=== PATIENT | female | born 1995 | race Caucasian/White ===

== ENCOUNTER 2022-02-21 01:30 | Observation (INO) ==
--- NOTE | 2022-02-21 02:27 | History & Physical Report ---
Date of Service February 21, 2022 Assessment & Plan (1) Vaginal bleeding during , antepartum: Plan: no obvious source of the bleeding but I suspect this may be a placental abruption will monitor for now and discuss case with [facility]. for recommendations . currently no further active bleeding noted. History of Present Illness Chief Complaint: heavy vaginal bleeding Primary Care Provider: NO PCP Patient is a 26 yo white female [facility] [birth year] who presents at 30 2/7 weeks with sudden onset of painless heavy vaginal bleeding. She ad been sleeping at the time and awoke to feeling something leaking and noted a large amount of blood in toilet. she put on a pad and soaked through this as well. she denies any cramping or abdominal pain prior to the bleeding episode. she denies any recent intercourse or increased activity. preganncy had been complicated by a large QUANG that has been followed by ultrasound. She did have a consult with [facility] concerning management of the QUANG. She has not had any bleeding since 20 week ultrasound. She did have a hematoma in area of IOS . placenta is fundal with no vasa previa. she has been having growth scans monthly because of the large QUANG which has now appeared to be resolved. most recent growth scan was at 28 weeks with possible velamentous cord insertion noted. EFW was 53 %tile. she has had good movement. blood type- O positive. Allergies Allergy/AdvReac Type Severity Reaction Status Date / Time No Known Allergies Allergy Verified 02/19/22 10:43 Home Medications Medication Instructions Recorded Confirmed Type prenat.vits,blade,ehp-ziqp-blvyd 1 tab PO QAM 05/26/21 02/21/22 History Patient History Medical History Missed Varicella vaccination Surgical History History of colonoscopy History of toe surgery ingrown toenail S/P wisdom tooth extraction Family History Grandfather (Paternal) Skin cancer Grandfather (Maternal) Lung cancer Mother Hypertension Father Myocardial infarction Grandmother (Paternal) Heart disease Other No family history of adverse response to anesthesia Denies family history of Ovarian cancer Breast cancer Colorectal cancer Social History Smoking Status: Never smoker Second Hand Exposure: No; Hx Alcohol Use: Yes ((none during )) Alcohol type: beer Hx Substance Use: No Preferred Language: Persian Communication Ability: Effective Civil Defense Director Required: No Beliefs That Will Affect Care: None marital status: marital status details: José Rueda (29) [phone] Current Living Situation: Spouse Current Living Situation Comment: lives with spouse, dog current occupational status: employed and student current occupation: PhD student [employer] Other Information That Helps Us Care for You: No Feels Safe at Home: Yes Assistive Devices: None Review of Systems All systems reviewed & are unremarkable except as noted in HPI & below Physical Exam Constitutional: WD/WN, vitals as above Psychiatric: A+Ox3, euthymic affect Genitourinary: OB Exam Abdomen: + vertex and + irregular contractions OB Exam Monitor Tracing: + external FHT monitor used, + external uterine monitor used, + category I and + normal FHT variability speculum exam - moderate amount of blood vaginally , cervix is visibly closed and long. ultrasound shows vertex presentation with large pockets of amniotic fluid noted. ferning is negative. Results & Data ([facility]) Vital Signs (Past 12 Hours) Vital Signs Pulse BP 02/21/22 01:53 75 123/76 02/21/22 01:40 90 140/91 Coding Level of Care Code 22552 Office/Outpt Visit, Est Diagnoses Vaginal bleeding during , antepartum O46.90
--- NOTE | 2022-02-21 03:02 | Communication Note ---
Date of Service: February 21, 2022 Discussed case with [facility] inspection clerk [facility]. will observe for now in L&D for any further substantial bleeding. will get formal ultrasound to assess for abruption will hold on Betamethasone for now per [facility] recs- if she has a second significant bleed would give it then patient aware of these recs and all questions answered as best that I can at this time
--- NOTE | 2022-02-21 09:02 | Obstetrical Progress Note ---
Date of Service February 21, 2022 Patient had a significant bleed last night was assessed by my partner Dr. Green her bleeding is slightly decreased however she still is having some active bleeding the heart rate is category 1 she has no pain at this time the cervix was viewed and was closed I reviewed with the patient and with Dr. Green about the possibility of transfer to [facility] we all agree has is that the patient has worsening bleeding we do not have a intensive care discussed with the patient she agrees we will make arrangements for this I did discuss with [facility] inquired about steroids they would prefer to wait until assessment at [facility] we will try to transfer by ambulance Assessment & Plan Admission and Anticipated Discharge Date Admission Date: February 21, 2022 Results & Data ([facility]) Vital Signs (Past 12 Hours) Vital Signs Temp Pulse Resp BP 02/21/22 07:11 98.4 F 83 20 108/58 L 02/21/22 01:53 75 123/76 02/21/22 01:49 98.6 F 18 02/21/22 01:40 90 140/91 PG Care Time/CCT Total # of Minutes Spent Total Time Spent with Patient: Total time spent is greater than 50% in coordination of care (as documented) at patient's floor/unit and/or counseling patient: Coding Level of Care Code None
--- NOTE | 2022-02-21 10:18 | History & Physical Report ---
Date of Service February 21, 2022 Assessment & Plan (1) Vaginal bleeding during , antepartum: Plan: After speaking with [place] and the patient we have agreed to transfer by ambulance. Again we will hold on betamethasone as per [facility] recommendations at this time my concern is that if she has another bleed that she would need access to potentially an intensive care unit we do not have this here at this stage she is stable her fetus is category 1 and reactive her bleeding is somewhat reduced and stable however it is not stopped and I think considering her earlier bleeding in this is the prudent thing to do. I reviewed this carefully with the patient including the risks of transfer I also discussed the benefits including access to a NICU Admission and Anticipated Discharge Date Admission Date: February 21, 2022 History of Present Illness Primary Care Provider: NO PCP Patient with a history of ongoing vaginal bleeding in her this stopped around 24 weeks she had a large subchorionic hemorrhage subsequently she had several weeks from 24 weeks to 30 weeks without any bleeding this early this morning she started having heavy bleeding so saturating through pads she was assessed by Dr. Green and found not to be ruptured membranes the cervix appeare d closed at that time. Ultrasound the time also revealed amniotic fluid was adequate per Dr. Green. Allergies Allergy/AdvReac Type Severity Reaction Status Date / Time No Known Allergies Allergy Verified 02/19/22 10:43 Home Medications Medication Instructions Recorded Confirmed Type prenat.vits,blade,vtw-boun-hiufc 1 tab PO QAM 05/26/21 02/21/22 History Patient History Medical History Missed Varicella vaccination Surgical History History of colonoscopy History of toe surgery ingrown toenail S/P wisdom tooth extraction Family History Grandfather (Paternal) Skin cancer Grandfather (Maternal) Lung cancer Mother Hypertension Father Myocardial infarction Grandmother (Paternal) Heart disease Other No family history of adverse response to anesthesia Denies family history of Ovarian cancer Breast cancer Colorectal cancer Social History Smoking Status: Never smoker Second Hand Exposure: No; Hx Alcohol Use: Yes ((none during )) Alcohol type: beer Hx Substance Use: No Preferred Language: Belizean Communication Ability: Effective Airplane Flight Attendant Supervisor Required: No Beliefs That Will Affect Care: None marital status: marital status details: José Rueda (29) [phone] Current Living Situation: Spouse Current Living Situation Comment: lives with spouse, dog current occupational status: employed and student current occupation: PhD student [employer] Other Information That Helps Us Care for You: No Feels Safe at Home: Yes Assistive Devices: None Review of Systems as per Subjective / HPI Physical Exam Constitutional: WD/WN, vitals as above well developed and well nourished Respiratory: normal respiratory effort, lungs clear to auscultation normal respiratory effort Cardiovascular: RRR, no murmur, no edema Gastrointestinal (Abdomen): normal bowel sounds, soft, nontender, no hepatosplenomegaly Results & Data ([facility]) Vital Signs (Past 12 Hours) Vital Signs Temp Pulse Resp BP 02/21/22 07:11 98.4 F 83 20 108/58 L 02/21/22 01:53 75 123/76 02/21/22 01:49 98.6 F 18 02/21/22 01:40 90 140/91 Coding Level of Care Code OBSERV/HOSP SAME DATE LVL 3 Diagnoses Vaginal bleeding during , antepartum O46.90
--- NOTE | 2022-02-26 07:13 | Discharge Summary ---
Date of Service February 26, 2022 Admission HPI Per Admitting Provider Patient with a history of ongoing vaginal bleeding in her this stopped around 24 weeks she had a large subchorionic hemorrhage subsequently she had several weeks from 24 weeks to 30 weeks without any bleeding this early this morning she started having heavy bleeding so saturating through pads she was assessed by Dr. Green and found not to be ruptured membranes the cervix appeared closed at that time. Ultrasound the time also revealed amniotic fluid was adequate per Dr. Green. Admission Exam (Per Admitting) Constitutional WD/WN, vitals as above well developed and well nourished Respiratory normal respiratory effort, lungs clear to auscultation normal respiratory effort Cardiovascular RRR, no murmur, no edema Gastrointestinal (Abdomen) normal bowel sounds, soft, nontender, no hepatosplenomegaly Hospital Course (1) Vaginal bleeding during , antepartum: After speaking with [place] and the patient we have agreed to transfer by ambulance. Again we will hold on betamethasone as per [facility] recommendations at this time my concern is that if she has another bleed that she would need access to potentially an intensive care unit we do not have this here at this stage she is stable her fetus is category 1 and reactive her bleeding is somewhat reduced and stable however it is not stopped and I think considering her earlier bleeding in this is the prudent thing to do. I reviewed this carefully with the patient including the risks of transfer I also discussed the benefits including access to a NICU Coding Level of Care Code None Diagnoses Vaginal bleeding during , antepartum O46.90
== END 2022-02-21 10:32 | disposition home or self-care (01) ==
LOC: OPB 01:30 → 4S1 01:30

== ENCOUNTER 2025-07-23 17:39 | Inpatient (IN) ==
[2025-07-23] MEDS ORDERED: CALCIUM CARBONATE 500 MG CHEWABLE TAB PO PRN (18:55)
[2025-07-23] MEDS ORDERED: LIDOCAINE 1% LOCAL 20 ML VIAL INFIL PRN (18:55)
--- NOTE | 2025-07-23 18:59 | History & Physical Report ---
Date of Service July 23, 2025 Assessment & Plan (1) 39 weeks gestation of : (2) Gestational hypertension: Plan admit, iv, labs. plan pitocin as well. fhts categ 1. reviewed indication for induction. History of Present Illness Chief Complaint: induction due to gest htn Primary Care Provider: Rosy Marmolejo MD 30yo at 39+wks ega presents to LD with cc of dx gest htn for planned induction of labor. Patient was seen in office this week and noted elevated bp on saturday. followup in office bp was normal but today again in office bp elevated and meeting criteria for dx gest htn. No horta or visual change. No swelling. +FM. No ctx, no vb. PNC c/b 1. gest htn PNL rh pos/ri/gbs neg OBH: x 1, induction due to chronic abruption at [facility] [place] GYNH: nl paps, no stds Allergies Allergy/AdvReac Type Severity Reaction Status Date / Time No Known Allergies Allergy Verified 07/23/25 16:19 Home Medications Medication Instructions Recorded Confirmed Type docosahexaenoic acid 200 mg 1 mg PO DAILY 07/21/24 07/23/25 History capsule ( DHA) magnesium 400 mg PO DAILY 01/01/25 07/23/25 History aspirin 81 mg tablet,delayed 81 mg PO DAILY 06/28/25 07/23/25 History release sertraline 25 mg tablet (Zoloft) 25 mg PO DAILY #30 tabs 06/29/25 07/23/25 Rx Patient History Medical History Thyroid enlargement Family history of nonmelanoma skin cancer History of placental abruption Velamentous insertion of umbilical cord Varicella vaccination Missed Surgical History History of toe surgery ingrown toenail History of colonoscopy S/P wisdom tooth extraction Family History Grandfather (Paternal) Alcohol abuse Grandfather (Maternal) Lung cancer Mother Hypertension Skin cancer Shingles Father Myocardial infarction Alcohol abuse Drug abuse Grandmother (Paternal) Heart disease Myocardial infarction Sister Anxiety Other No family history of adverse response to anesthesia Denies family history of Ovarian cancer Prostate cancer Diabetes Breast cancer Colorectal cancer Social History Smoking Status: Never smoker Second Hand Exposure: No; Do You Dip or Chew Tobacco: No; Tobacco Cessation Education Requested by Patient: No Hx Alcohol Use: No Hx Substance Use: No Preferred Language: Beninese Communication Ability: Effective Filler Feeder Required: No Beliefs That Will Affect Care: None marital status: marital status details: José Rueda (32) [phone] Current Living Situation: Spouse Current Living Situation Comment: , [place]- 3 year old son current occupational status: employed current occupation: Special Needs Bus Driver at [employer] Other Information That Helps Us Care for You: No Feels Safe at Home: Yes Safety Concerns: Feels Safe At This Time Childhood Exposure to Second-Hand Smoke: No Dental Care, Regularly: Yes Physical Activity Frequency: Daily Seatbelt Use: always Sunscreen Use: Yes Assistive Devices: None Review of Systems as per Subjective / HPI Physical Exam Constitutional: WD/WN, vitals as above Respiratory: normal respiratory effort, lungs clear to auscultation Cardiovascular: Rate/Rhythm: regular rate and regular rhythm Gastrointestinal (Abdomen): soft gravid nt efw 7-8# Musculoskeletal: no edema nontender calves Neurologic: grossly normal Psychiatric: A+Ox3, euthymic affect Genitourinary: OB Exam Abdomen: + vertex (by u/s) Manual OB Exam: + cervical dilation fingertip, + cervical effacement (long) and + station high OB Exam Monitor Tracing: + external FHT monitor used, + external uterine monitor used, + category I and + normal FHT variability PROCEDURE: sse cx visualized, grasped on ant lip with ring forcep, red through os and balloon inflated with 40cc sterile water. Spec removed, red taped to leg. pt mikel well. Results & Data Vital Signs (Past 12 Hours) Vital Signs Temp Pulse Resp BP 07/23/25 18:36 72 138/85 07/23/25 18:25 67 152/85 H 07/23/25 18:16 64 155/83 H 07/23/25 18:10 98.4 F 64 18 155/83 H 07/23/25 17:56 76 156/86 H Coding Level of Care Code None Diagnoses 39 weeks gestation of Z3A.39 Gestational hypertension O13.9
[2025-07-23] MEDS: OXYTOCIN 30 UNITS/NSS 30 UNITS/500 ML BAG IV PRN (19:32)
[2025-07-23] MEDS: LACTATED RINGER'S 1,000 ML IV PRN (19:34)
[2025-07-23 20:05] LABS: Hematocrit (blood only) 35.0 % (37.0-47.0); Hemoglobin 12.2 g/dl (12.0-16.0); Mean Corpuscular Hemoglobin 32.9 pg (25.0-34.0); Mean Corpuscular Volume 94.3 fL (80.0-100.0); Platelet Count 160 K/uL (130-400); RDW Standard Deviation 44.4 fL (36.4-46.3); Red Blood Count 3.71 M/uL (4.20-5.40); White Blood Count 7.98 K/ul (4.8-10.8)
[2025-07-23 20:24] LABS: Alanine Aminotransferase 14.0 U/L (7-52); Albumin Globulin Ratio 0.9 (0.9-2); Alkaline Phosphatase 165.0 U/L (34-104); Anion Gap 9.0 (3-11); Bilirubin,Total 0.3 mg/dl (0.2-1.0); Blood Urea Nitrogen 9.0 mg/dl (6-23); Calcium 9.2 mg/dl (8.6-10.3); Carbon Dioxide 20.0 mmol/L (21-32); Chloride 107.0 mmol/L (98-107); Creatinine Clr Calc Pharmacy 167.9 ml/min; Globulin 3.7 gm/dl (2.5-4.0); Glucose 78.0 mg/dl (70-99(Fasting)); Potassium 3.6 mmol/L (3.5-5.1); Sodium 136.0 mmol/L (136-145); Total Protein 7.2 gm/dl (6.0-8.3)
--- NOTE | 2025-07-23 23:26 | Communication Note ---
Date of Service: July 23, 2025 called by nursing re: pt bps. elevated at times above 160sbp, was initially just when on birthing ball but then recurred. however not persistent when taken 20min apart so for now will hold off on trt with iv meds and poss magnesium. will monitor. labs are ok. pt had reported mild horta that she attributed to eating a icee as that is what happens when she eats such things. will monitor for worsening sx. continues on pitocin.
[2025-07-23] MEDS: ACETAMINOPHEN 325 MG TAB PO ONE (23:30)
[2025-07-24] MEDS ORDERED: BUTORPHANOL TARTRATE 1 MG/ML VIAL IV PRN (02:00)
--- NOTE | 2025-07-24 02:01 | Labor Progress Brief Note ---
Date of Service July 24, 2025 Subjective not really feeling pain with ctx. Assessment & Plan (1) 39 weeks gestation of : (2) Gestational hypertension: Plan will see how arom helps labor pattern. fhts categ 1. c/w pit. Admission and Anticipated Discharge Date Admission Date: July 23, 2025 Physical Exam Constitutional: WD/WN, vitals as above Genitourinary: Manual OB Exam: + cervical dilation (3-4), + cervical effacement 50%, + station -2 and + amniotic fluid (arom) clear OB Exam Monitor Tracing: + external FHT monitor used, + external uterine monitor used (q2-5 pit at 23), + category I and + normal FHT variability Results & Data Vital Signs (Past 12 Hours) Vital Signs Temp Pulse Resp BP 07/24/25 01:32 60 135/67 07/24/25 01:00 60 136/69 07/24/25 00:39 57 L 116/65 07/24/25 00:28 62 128/70 07/24/25 00:00 60 150/74 H 07/23/25 23:39 61 136/75 07/23/25 23:24 64 132/77 07/23/25 23:19 66 132/73 07/23/25 23:00 16 07/23/25 23:00 98.1 F 16 07/23/25 22:51 64 161/91 H 07/23/25 22:36 79 167/94 H 07/23/25 22:20 70 156/96 H 07/23/25 22:05 81 159/91 H 07/23/25 21:51 72 160/89 H 07/23/25 21:34 74 152/87 H 07/23/25 21:30 75 166/94 H 07/23/25 21:18 67 175/91 H 07/23/25 18:59 71 137/94 07/23/25 18:36 72 138/85 07/23/25 18:25 67 152/85 H 07/23/25 18:16 64 155/83 H 07/23/25 18:10 98.4 F 64 18 155/83 H 07/23/25 17:56 76 156/86 H Coding Level of Care Code None Diagnoses 39 weeks gestation of Z3A.39 Gestational hypertension O13.9
[2025-07-24] MEDS: fentANYL 2 MCG/ML BUPIVacaine 0.125%-NSS 100ML BAG ONE (05:46)
[2025-07-24] MEDS: BUPIVACAINE 0.25% PF 30 ML VIAL ONE (05:49)
[2025-07-24] MEDS ORDERED: BUPIVACAINE 0.25% PF 30 ML VIAL EPI PRN (05:50)
[2025-07-24] MEDS ORDERED: NALOXONE HCL 1 MG in SODIUM CHLORIDE 0.9% 1,000 ML IV PRN (05:50)
[2025-07-24] MEDS ORDERED: LIDOCAINE 2% MPF LOCAL 5 ML VIAL EPI PRN (05:50)
[2025-07-24] MEDS ORDERED: ROPIVACAINE 0.5% PF 5 MG/ML 20 ML VIAL EPI PRN (05:50)
[2025-07-24] MEDS: SODIUM CHLORIDE 0.9% PF INJ 10 ML VIAL ONE (05:50)
[2025-07-24] MEDS ORDERED: PROMETHAZINE 6.25 MG/50.25 ML BAG IV PRN (05:50)
[2025-07-24] MEDS ORDERED: NALBUPHINE HCL INJ 10 MG/ML AMP IV PRN (05:50)
[2025-07-24] MEDS ORDERED: fentANYL 2 MCG/ML BUPIVacaine 0.125%-NSS 100ML BAG EPI PRN (05:50)
[2025-07-24] MEDS ORDERED: SODIUM CHLORIDE 0.9% PF INJ 10 ML VIAL EPI PRN (05:50)
[2025-07-24] MEDS ORDERED: ONDANSETRON INJ 2 MG/ML 2 ML VIAL IV PRN (05:50)
[2025-07-24] MEDS ORDERED: diphenhydrAMINE 50 MG/ML VIAL IV PRN (05:50)
[2025-07-24] MEDS ORDERED: NALOXONE HCL 0.4 MG/1 ML VIAL/CARP IV PRN (05:50)
--- NOTE | 2025-07-24 05:50 | Anesthesiology Consultation ---
Date of Service July 24, 2025 Assessment & Plan Chart Review Chart Review: Patient NOT seen in Pre Admission Testing and Acceptable Risk for Labor Epidural Consults Requested none ASA ASA2 Proposed Anesthesia Anesthesia Type: Labor Epidural Risk / Benefits Reviewed With: PT / POA / Parent / Guardian, Accepts Plan and Informed Consent Obtained History Height/Weight Height: 5 ft 8 in Weight: 80.286 kg Allergies Allergy/AdvReac Type Severity Reaction Status Date / Time No Known Allergies Allergy Verified 07/23/25 16:19 Medications Home Medications Medication Instructions Recorded Confirmed Last Taken docosahexaenoic acid 200 mg 1 mg PO DAILY 07/21/24 07/23/25 06/28/25 capsule ( DHA) magnesium 400 mg PO DAILY 01/01/25 07/23/25 06/28/25 aspirin 81 mg tablet,delayed 81 mg PO DAILY 06/28/25 07/23/25 06/28/25 release sertraline 25 mg tablet (Zoloft) 25 mg PO DAILY #30 tabs 06/29/25 07/23/25 Unknown Active Medications Generic Name Dose Route Start Last Admin Trade Name Freq PRN Reason Stop Dose Admin Oxytocin 30 units in 500 mls @ 23 mls/hr 07/23/25 18:55 07/24/25 01:30 Pitocin 30 Units/Nss IV 07/25/25 18:54 1.38 units/hr .[id number] PRN 23 mls/hr Labor Induction/Augmentation Titration Protocol 1.38 UNITS/HR Lactated Ringer's 1,000 mls @ 125 mls/hr 07/23/25 18:55 07/24/25 02:57 Lr IV 07/25/25 18:54 125 mls/hr .Q8H PRN Administration L&D Protocol Protocol Past Medical History Medical History Thyroid enlargement Family history of nonmelanoma skin cancer History of placental abruption Velamentous insertion of umbilical cord Varicella vaccination Missed Exercise / Class Metabolic Activity II 4-5 Yardwork/Stairs/Walk up hill Past Family History Family History Grandfather (Paternal) Alcohol abuse Grandfather (Maternal) Lung cancer Mother Hypertension Skin cancer Shingles Father Myocardial infarction Alcohol abuse Drug abuse Grandmother (Paternal) Heart disease Myocardial infarction Sister Anxiety Other No family history of adverse response to anesthesia Denies family history of Ovarian cancer Prostate cancer Diabetes Breast cancer Colorectal cancer Past Surgical History Surgical History History of toe surgery ingrown toenail History of colonoscopy S/P wisdom tooth extraction Past Anesthesia History No Hx of Anesthesia Complications and No Family Hx of Anesthesia Complications History of PONV No Hx of PONV and No Hx of Motion Sickness Social History Smoking Status: Never smoker Do You Dip or Chew Tobacco: No Hx Alcohol Use: No Alcohol type: beer alcohol intake frequency: a few times a week Hx Substance Use: No substance use type: does not use Physical Exam Vital Signs Last Vital Signs Temp 36.4 C L 07/24/25 04:04 Pulse 79 07/24/25 05:46 Resp 16 07/24/25 02:00 BP 139/80 07/24/25 05:46 Pulse Ox 98 07/24/25 05:46 ENMT Mouth: no dentition abnormality Thyromental Distance: > or= 3.5 Finger Breadths Mallampati Class: II Neck normal visual inspection Respiratory normal respiratory effort Auscultation: lungs clear to auscultation bilaterally Cardiovascular Rate/Rhythm: regular rate and regular rhythm Psychiatric Orientation: alert Testing Laboratory Results 07/23/25 19:20 07/23/25 19:20
[2025-07-24] MEDS ORDERED: OXYTOCIN 30 UNITS/NSS 30 UNITS/500 ML BAG IV PRN (08:02)
[2025-07-24] MEDS ORDERED: HYDROCORTISONE ACETATE 25 MG SUPP PR PRN (08:02)
--- NOTE | 2025-07-24 08:18 | Delivery Summary ---
Vaginal Delivery Summary Date of Service July 24, 2025 Vaginal Delivery Summary and 2nd Degree LAC The patient dilated to complete and pushed to deliver a viable male infant Apgars 8 and 9 via over 2nd degree perineal laceration. Mouth and nose bulb suctioned at perineum. Shoulders and body delivered with ease. Infant was vigorous and crying at . Cord clamped at 30 seconds of life and infant to maternal abdomen where the cord was then doubly clamped and cut. Placenta delivered spontaneously and intact, three-vessel cord. Hemostasis achieved with dilute pitocin and uterine massage and drainage of the bladder for approximately 400 cc under sterile conditions. Laceration repaired in layers with 3-0 vicryl in usual fashion. Cervix and sulci intact. QBL 350 cc. Mother and baby stable in recovery[place] [facility] [place] Charge Delivery Type Details: and 2nd Degree LAC
--- NOTE | 2025-07-24 08:32 | Anesthesia Procedure Note ---
Date of Service July 24, 2025 Anesthesia Post Epidural Note Vital Signs Vital Signs: Temp Pulse Resp BP Pulse Ox 36.7 C 64 20 121/76 99 07/24/25 07:02 07/24/25 08:29 07/24/25 08:15 07/24/25 08:29 07/24/25 07:56 Pain Intensity Lower Back: Pain Intensity: 6 Notes Mental Status: alert / awake / arousable and participated in evaluation Nausea / Vomiting: adequately controlled Pain: adequately controlled Airway Patency, RR, SpO2: stable & adequate BP & HR: stable & adequate Hydration State: stable & adequate Neuraxial Anesthesia: was administered and sensory block resolved Anesthetic Complications: no major complications apparent and Pt Satisfied with anesthetic care Epidural: Removed without complications and With tip intact
[2025-07-24] MEDS: OXYTOCIN 30 UNITS/NSS 30 UNITS/500 ML BAG IV PRN (08:45)
[2025-07-24] MEDS: IBUPROFEN 600 MG TAB PO PRN (10:08)
[2025-07-24] MEDS: BENZOCAINE 20% SPRY 85 APPLN/85 GM CAN EXT PRN (10:08)
[2025-07-24] MEDS: BUPIVACAINE 0.25% PF 30 ML VIAL EPI STA (16:42)
[2025-07-24] MEDS: LIDOCAINE 2%/EPINEPHRINE 1:200,000 20 ML PF ONE (16:42)
[2025-07-24] MEDS: LIDOCAINE 2%/EPINEPHRINE 1:200,000 20 ML PF EPI STA (16:42)
[2025-07-24] MEDS: SODIUM CHLORIDE 0.9% PF INJ 10 ML VIAL EPI STA (16:42)
[2025-07-24] MEDS: ACETAMINOPHEN 325 MG TAB PO PRN (17:28)
[2025-07-24] MEDS: SERTRALINE HCL 50 MG TABLET PO SCH (21:00)
[2025-07-24] MEDS: DOCUSATE SODIUM 100 MG CAP PO SCH (21:00)
[2025-07-25 03:38] VITALS: O2SAT 98
[2025-07-25] MEDS: DIPHTHER/TETAN/PERTUS Vaccine (Tdap, Adol/Adult) 0.5mL IM ONE (07:25)
--- NOTE | 2025-07-25 08:39 | Obstetrical Progress Note ---
Date of Service July 25, 2025 Assessment & Plan (1) care and examination: PPD#1 doing well. BPs have been normal since delivery. Eating/drinking/ambulating well. Lochia has slowed. Will give first dose Lovenox 40mg SQ today, and then she has Rx at home from [facility]. Recommend f/u in office within 1 week for repeat BP check. She is considering increasing zoloft to 50mg, will write Rx for her to be able to do this if she feels indicated, and she plans to follow up with her PCP when she gets out of the window for further care. Reviewed DC instructions. Subjective Ambulation: ambulating normally Voiding: no voiding problems Diet Tolerance:: regular diet Lochia:: Moderate Review of Systems All systems reviewed & are unremarkable except as noted in HPI & below Physical Exam Constitutional WD/WN, vitals as above no acute distress Respiratory normal respiratory effort Cardiovascular Rate/Rhythm: regular rate and regular rhythm Gastrointestinal (Abdomen) Inspection/Auscultation: abdomen normal to inspection; abdomen not distended Percussion/Palpation: abdomen soft Genitourinary OB Exam Abdomen: + fundal height Fundus: + firm; not tender Results & Data Vital Signs (Past 12 Hours) Vital Signs Temp Pulse Resp BP Pulse Ox O2 Del Method 07/25/25 03:25 36.7 C 76 14 126/76 98 Room Air 07/24/25 23:00 36.8 C 68 14 121/70 97 Room Air
[2025-07-25] MEDS: PRENATAL VITAMIN 1 TAB PO SCH (09:05)
[2025-07-25] MEDS: FERROUS SULFATE 325 MG TAB PO SCH (09:05)
[2025-07-25] MEDS: MEASLES, MUMPS & RUBELLA VIRUS VACCINE (MMR) 0.5ML VIAL SQ ONE (09:33)
[2025-07-25] MEDS: ENOXAPARIN INJ 40 MG/0.4 ML SYR SQ SCH (09:39)
[2025-07-25 10:00] VITALS: BP 123/80; PULSE 65; RESP 16; TEMP 98.2
== END 2025-07-25 12:21 | disposition home or self-care (01) | DRG 807 ==
LOC: OPB 17:39 → 4S1 17:42 → 4E2 07-24 12:20